=== PATIENT | female | born 1995 | race Caucasian/White ===

== ENCOUNTER 2018-10-19 11:52 | Observation (INO) | payer BC, OTHER ==
[2018-10-19] MEDS ORDERED: IBUPROFEN 600 MG TAB PO ONE (12:04)
[2018-10-19] MEDS ORDERED: ONDANSETRON 4 MG/2 ML VIAL IVP ONE (12:25)
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
[2018-10-19 13:33] LABS: PLATELET COUNT 314 10^3/uL (150-400)
[2018-10-19] MEDS ORDERED: IOPAMIDOL (ISOVUE 370) 100 ML BTL IV ONE (13:52)
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
[2018-10-19] MEDS ORDERED: ACETAMINOPHEN 325 MG TAB PO PRN (17:41)
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
[2018-10-19] MEDS ORDERED: D5W 1/2 NS 1,000 ML IV SCH (17:45)
[2018-10-19] MEDS: HYDROmorphONE/DILAUDID 1 MG/ML INJ IVP PRN ×3 (18:00→22:33)
[2018-10-19] MEDS: oxyCODONE IR 5 MG TAB PO PRN ×3 (18:25→22:32)
[2018-10-19] MEDS ORDERED: ALBUTEROL 60 PUFFS/8 GM MDI IH PRN (22:12)
[2018-10-20] MEDS: MONTELUKAST SODIUM 10 MG TAB PO SCH ×2 (00:34→22:07)
[2018-10-20] MEDS: oxyCODONE IR 5 MG TAB PO PRN ×2 (03:07→09:14)
[2018-10-20] MEDS: HYDROmorphONE/DILAUDID 1 MG/ML INJ IVP PRN ×2 (03:31→06:34)
[2018-10-20 05:12] LABS: PLATELET COUNT 231 10^3/uL (150-400)
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
[2018-10-20] MEDS: BUDESONIDE/FORMOTEROL 160/4.5 60 PUFFS/MDI IH SCH (10:28)
[2018-10-20] MEDS: ONDANSETRON 4 MG/2 ML VIAL IVP PRN ×2 (10:39→15:32)
[2018-10-20] MEDS: METHOCARBAMOL 750 MG TAB PO PRN ×3 (10:39→22:12)
[2018-10-20] MEDS: HYDROCODONE/APAP 5/325 TAB PO PRN ×4 (12:49→22:12)
[2018-10-20] MEDS ORDERED: POLYETHYLENE GLYCOL 3350 17 GM PKT PO PRN (13:12)
[2018-10-20] MEDS ORDERED: BISACODYL 10 MG SUPP PR PRN (13:12)
[2018-10-20] MEDS ORDERED: MAGNESIUM HYDROXIDE 30 ML UDCUP PO PRN (13:12)
[2018-10-20] MEDS ORDERED: LACTULOSE 20 GM/30 ML UDCUP PO PRN (13:12)
--- NOTE | 2018-10-20 14:57 | TRAUMAPNT ---
Trauma Tertiary Progress Note New Findings: C/o posterior neck pain. C/o pelvic pain with lateral compression Assessment/Plan: PAD#1 10/20/2018 Assessment: VSS She has known l1&l2 anterior wedging as well as left ribs 7,10,11 fractures suspect 8&9 as well but xrays incomplete. IS [id number], no PTX Brace for L1&L2 wedging has been fitted Plan: CT neck, Pelvic x-rays Subjective: My neck hurts Objective: Vital Signs Temp Pulse Resp BP Pulse Ox 36.7 C 95 16 113/66 95 10/20/18 12:00 10/20/18 12:00 10/20/18 12:00 10/20/18 12:00 10/20/18 12:00 Laboratory Results 10/20/18 04:44 10/20/18 04:44 10/19/18 10/20/18 10/21/18 05:59 05:59 05:59 Intake Total 300 Output Total 600 Balance -300 - C-Spine Clearance Cervical Spine Cleared: No Physical Exam - Physical Exam General Appearance: WD/WN, alert, mild distress Neck: tender midline Respiratory: lungs clear, normal breath sounds Cardiac/Chest: regular rate, rhythm Abdomen: non-tender, soft, other (pelvis tender bilaterally with compression) Pelvic Exam: deferred Rectal: deferred Back: Normal inspection Skin: normal color, warm/dry Extremities: normal range of motion, non-tender Neuro/Psych: no motor/sensory deficits, alert, normal mood/affect, oriented x 3 Time Spent w/Patient (minutes): 25
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
[2018-10-20] MEDS: SENNOSIDES/DOCUSATE SODIUM TAB PO SCH ×2 (15:34→22:07)
[2018-10-20] MEDS: ONDANSETRON DISINTEGRATING 4 MG TAB PO PRN ×2 (17:45→22:07)
[2018-10-21] MEDS: HYDROCODONE/APAP 5/325 TAB PO PRN ×2 (03:20→10:33)
[2018-10-21] MEDS: ONDANSETRON DISINTEGRATING 4 MG TAB PO PRN ×2 (03:21→10:31)
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
[2018-10-21] MEDS: HYDROmorphONE/DILAUDID 1 MG/ML INJ IVP PRN (10:30)
[2018-10-21] MEDS: SENNOSIDES/DOCUSATE SODIUM TAB PO SCH ×2 (10:33→21:03)
[2018-10-21] MEDS: BUDESONIDE/FORMOTEROL 160/4.5 60 PUFFS/MDI IH SCH (10:47)
[2018-10-21] MEDS ORDERED: HYDROmorphONE/DILAUDID 1 MG/ML INJ IVP PRN (14:36)
[2018-10-21] MEDS: HYDROmorphONE/DILAUDID 2 MG TAB PO PRN ×3 (15:27→22:01)
[2018-10-21] MEDS: KETOROLAC 30 MG/1 ML SDV IVP PRN ×2 (15:27→22:07)
[2018-10-21] MEDS: METHOCARBAMOL 750 MG TAB PO PRN ×2 (15:27→22:07)
[2018-10-21] MEDS: LIDOCAINE 4%/MENTHOL 1% PATCH TD SCH (15:28)
[2018-10-21] MEDS: ACETAMINOPHEN 500 MG TAB PO SCH ×2 (17:01→22:01)
[2018-10-21] MEDS: ONDANSETRON 4 MG/2 ML VIAL IVP PRN (17:52)
[2018-10-21] MEDS: MONTELUKAST SODIUM 10 MG TAB PO SCH (20:45)
[2018-10-21] MEDS ORDERED: PATCH REMOVAL 1 EA PATCH TD SCH (21:00)
[2018-10-22] MEDS: METHOCARBAMOL 750 MG TAB PO PRN ×2 (04:14→13:45)
[2018-10-22] MEDS: HYDROmorphONE/DILAUDID 2 MG TAB PO PRN ×2 (04:14→12:38)
[2018-10-22] MEDS: KETOROLAC 30 MG/1 ML SDV IVP PRN (04:15)
[2018-10-22] MEDS: ACETAMINOPHEN 500 MG TAB PO SCH (07:07)
[2018-10-22] MEDS: LIDOCAINE 4%/MENTHOL 1% PATCH TD SCH (09:33)
[2018-10-22] MEDS: SENNOSIDES/DOCUSATE SODIUM TAB PO SCH (09:34)
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
[2018-10-22] MEDS: BUDESONIDE/FORMOTEROL 160/4.5 60 PUFFS/MDI IH SCH (11:05)
[2018-10-22 12:02] VITALS: BP 105/68
--- NOTE | 2018-10-22 14:10 | ASMTLACE ---
LACE Length of stay for Answers: 4-6 days current admission Acuity / Level of Answers: No Care: Did the patient have an inpatient admission? Comorbidities - select Answers: Opioid dependence all that apply / Chronic pain # of Emergency department Answers: 1-2 visits in the last 6 months Score: 9 Date Signed: 10/22/2018 02:09 PM Electronically Signed By:JENNIFER Dugan
[2018-10-22] MEDS ORDERED: BUDESONIDE/FORMOTEROL 160/4.5 60 PUFFS/MDI IH SCH (21:00)
== END 2018-10-22 14:52 | disposition home or self-care (01) ==
LOC: F3N 17:30
PROVIDERS: ADMIT Surgery; ATTEND Surgery
DX: S32.010A Wedge compression fracture of first lumbar vertebra, initial encounter for closed fracture (principal); S32.020A Wedge compression fracture of second lumbar vertebra, initial encounter for closed fracture; S06.0X9A Concussion with loss of consciousness of unspecified duration, initial encounter; S22.42XA Multiple fractures of ribs, left side, initial encounter for closed fracture; V13.4XXA Pedal cycle driver injured in collision with car, pick-up truck or van in traffic accident, initial encounter; Y92.414 Local residential or business street as the place of occurrence of the external cause; J45.909 Unspecified asthma, uncomplicated; Y93.55 Activity, bike riding
CPT/HCPCS: 71045; 72080; 72125; 72132; 72141; 72170; 74177; 92507; 92523; 96374; 96375; 96376; 97161; 97165; 97530; 97535; 99285; G0378; J1170; J1885; J2270; J2405; Q9967

== ENCOUNTER → 2018-11-03 | Outpatient (CLI) | payer BC, OTHER | LOC: FIMAGING 16:49 | PROVIDERS: ATTEND Physician Assistant | DX: S32.010D Wedge compression fracture of first lumbar vertebra, subsequent encounter for fracture with routine healing (principal); S32.020D Wedge compression fracture of second lumbar vertebra, subsequent encounter for fracture with routine healing ==

== ENCOUNTER → 2018-11-21 | Outpatient (CLI) | payer BC, OTHER | LOC: FIMAGING 12:23 | PROVIDERS: ATTEND Physician Assistant | DX: S32.010D Wedge compression fracture of first lumbar vertebra, subsequent encounter for fracture with routine healing (principal); S32.020D Wedge compression fracture of second lumbar vertebra, subsequent encounter for fracture with routine healing ==

== ENCOUNTER → 2018-12-14 | Outpatient (CLI) | payer BC, OTHER | LOC: FIMAGING 15:42 | PROVIDERS: ATTEND Physician Assistant | DX: S32.000D Wedge compression fracture of unspecified lumbar vertebra, subsequent encounter for fracture with routine healing (principal); S22.42XD Multiple fractures of ribs, left side, subsequent encounter for fracture with routine healing ==

== ENCOUNTER → 2019-01-20 | Outpatient (CLI) | payer BC, OTHER | LOC: FIMAGING 13:46 | PROVIDERS: ATTEND Neurological Surgery | DX: S32.000D Wedge compression fracture of unspecified lumbar vertebra, subsequent encounter for fracture with routine healing (principal) ==